=== PATIENT | female | born 1950 | race Caucasian/White ===

== ENCOUNTER 2017-02-02 17:52 | Emergency (ER) | payer OTHER ==
[~2017-02-02] VITALS: Wt 65.0 kg
[~2017-02-02 17:52] MED LIST: AMLO5TAB4 PO; ASPI81TA3 PO; METO50TA16 PO; NIT4 SL; RANI75TA13 PO
--- NOTE | 2017-02-02 18:34 | ERD ---
ER Documentation Chief Complaint Date/Time DATE: 02/02/17 TIME: 18:27 Chief Complaint RIGHT ANKLE PAIN/INJURY, HAPPENED LAST NIGHT HPI This pleasant 66-year-old female reports walking outside in her neighborhood yesterday and twisting her right ankle. Patient denies that she fell to the ground, she was able to catch herself with her utility trolley. Patient reports pain and swelling on the outside of her right ankle 8/10 on pain scale, described as aching, denies numbness, loss of consciousness, or injury any other body part., patient also reports foot pain along fifth phalanx on right foot. Patient past medical history includes cervical fusion 2010. Patient reports that she used rest, ice, warm compresses and Tylenol with little relief of pain. ROS All systems reviewed and are negative except as per history of present illness. Medications Home Meds Active Scripts Ibuprofen* (Motrin*) 400 Mg Tab, 400 MG PO Q6, #30 TAB Prov:NICKIE ONEIL 02/02/17 Nitroglycerin* (Nitrostat*) 0.4 Mg Tab.subl, 1 TAB SL Q5M Y for CHEST PAIN, #20 Prov:REAGAN TURNER MD 02/05/16 Aspirin (Aspirin) 81 Mg Chew, 81 MG PO DAILY for 30 Days, TAB Prov:ROMY TAPIA MD 07/14/15 Reported Medications Ranitidine Hcl* (Zantac*) 75 Mg Tablet, 75 MG PO BID, TAB 02/04/16 Metoprolol Succinate* (Toprol XL*) 50 Mg Tab.er.24h, 50 MG PO DAILY, #30 TAB 02/04/16 Amlodipine Besylate* (Norvasc*) 5 Mg Tablet, 5 MG PO DAILY, TAB 02/04/16 Allergies Allergies: Coded Allergies: Penicillins (Verified Allergy, Mild, ITCHING, 02/04/16) codeine (Verified Allergy, Mild, ITCHING, 02/04/16) erythromycin base (Verified Allergy, Mild, ABD PAIN, 02/04/16) morphine (Verified Allergy, Unknown, 02/04/16) PMhx/Soc History of Surgery: Yes (neck surgery.) Anesthesia Reaction: No Hx Neurological Disorder: Yes (TIA) Hx Respiratory Disorders: No Hx Cardiac Disorders: Yes (HTN) Hx Psychiatric Problems: No Hx Miscellaneous Medical Probl: No Hx Alcohol Use: No Hx Substance Use: No Hx Tobacco Use: No Smoking Status: Never smoker Physical Exam Vitals Vital Signs Date Time Temp Pulse Resp B/P Pulse Ox O2 Delivery O2 Flow Rate FiO2 02/02/17 17:57 97.7 73 17 154/76 99 Vitals stable, triage notes reviewed Physical Exam Const: No acute distress Head: Atraumatic Eyes: Normal Conjunctiva, PERRLA, EOMI ENT: Neck: Limited range of motion with rotation flexion and extension , this is baseline for patient. Resp: Chest rises and falls symmetrically, clear to auscultation bilaterally, no respiratory distress Cardio: Abd: Skin: No petechiae or rashes, no laceration, abrasion, or hematoma Back: Ext: Lower Extremity -right ankle: Skin: No laceration Compartments: Soft, palpable edema lateral ligaments Motor: Full active range of motion with rotation, flexion, extension, patient is able to ambulate without deficit but reports pain with weightbearing Sensation: Intact to light touch anterior, posterior, inferior, and lateral surfaces. Bones: Tender to palpation lateral malleolus, instep, and medial malleolus, fifth tarsal tenderness Joints: No effusion or laxity Pulses/Perfusion: 2+ DP, Capillary refill < 2 seconds Neur: Awake and alert Psych: Normal Mood and Affect Results 24 hrs Current Medications Medications (Trade) Dose Ordered Sig/Katie Route PRN Reason Start Time Stop Time Status Last Admin Dose Admin Ibuprofen (Motrin) 400 mg ONCE ONCE PO 02/02/17 19:00 02/02/17 19:01 DC 02/02/17 18:45 Procedures/MDM PROCEDURE: XR Right Ankle. CLINICAL INDICATION: Injury. TECHNIQUE: AP, oblique and lateral views of the right ankle were performed. COMPARISON: None. FINDINGS: There is a plantar spur off of the right os calcaneus. The ankle mortise and joint spaces are normal. The bony elements are intact. IMPRESSION: 1. No evidence of an acute fracture involving the right ankle. Physician Scooter Date Time Electronically viewed and signed by William Alberto Physician on 02/02/2017 19:41 ROCEDURE: Right XR Foot. CLINICAL INDICATION: Right foot. TECHNIQUE: AP lateral and oblique views of the right foot was obtained. The images were reviewed on a PACS workstation. COMPARISON: No. FINDINGS: The soft tissues and bony elements are normal. There is narrowing of the right first metatarsal phalangeal joint. There is soft tissue swelling medial to the joint. The other joint spaces are normal. IMPRESSION: 1. There is narrowing of the right first metatarsal phalangeal joint space with mild soft tissue swelling medial to the joint space. Physician Scooter Date Time Electronically viewed and signed by Physician Scooter on 02/02/2017 19:40 This pleasant 66-year-old female presents to the emergency department for evaluation of right ankle pain after twisting her ankle while ambulating in her neighborhood. Patient did not fall, did not lose consciousness, and has been mobile since injury. Patient has been treating symptoms with ice and warm compresses and Tylenol with little relief of symptoms. Patient has tenderness and swelling noted at lateral malleolus, tarsus, and medial malleolus, fifth metatarsal tenderness. There is suspicion for an ankle fracture, fifth metatarsal fracture, x-rays obtained, right ankle x-ray impression no evidence of acute ankle fracture. There is plantar spur of the right OS calcaneus. Right foot x-ray impression there is narrowing of the right first metatarsal pharyngeal joint space with mild soft tissue swelling medial to the joint space. All other joint spaces documented as normal. Patient receives a [place] and emergency department for pain 8/10 on pain scale. Patient will be discharged home with Vitor wrap, short dose of motrin and rice therapy. Return to emergency department for worsening of symptoms, inability to ambulate, I feel the patient is stable for discharge at this time with outpatient management and follow-up with primary care physician. I have discussed results , examination findings, the treatment plan with the patient and family present prior to discharge. Indications for emergent reevaluation, side effects of medication were also discussed. All questions were answered. Patient verbalizes understanding and agrees with plan of care. Departure Diagnosis: Primary Impression: Ankle injury Encounter type: initial encounter Laterality: right Qualified Code: S99.911A - Ankle injury, right, initial encounter Condition: Good Patient Instructions: Treating Ankle Sprains Additional Instructions: Thank you for for coming to [facility] for your care today. Please ask your nurse or provider if you have questions about your care today and do not leave until all your questions have been answered. Please use any medications given as directed and follow-up with your doctor (or the doctor you were referred to) in the next 2-3 days. If you do not have a primary care doctor [place] [facility] [place] You may also use motrin and tylenol as needed for fever and/or pain unless instructed otherwise by your provider or nurse. Indications for more urgent follow-up have been discussed, but you may return to the Emergency Department at ANY time for any worrisome or worsening symptoms. If you have abdominal pain, please know that no test or exam you received is perfect and you should follow up within 8 hours for continued pain. If you had any imaging studies today, such as an X-Ray or CT Scan, these studies will be reviewed later by a radiologist. You will be called if there are important findings that were not identified today, so make sure the contact information you provided at registration is correct. If you received any narcotic pain control medicine today, such as Vicodin, Morphine or Dilaudid, your coordination and judgment may be affected for a number of hours. Please do not drive or operate heavy machinery, and you may want someone to assist you at home. If you were given a prescription for narcotic medication, be aware that it is very addictive- use sparingly and only if necessary. NICKIE ONEIL February 02, 2017 18:34
[2017-02-02] MEDS ORDERED: IBUPROFEN 200 MG TAB PO ONE (19:00)
--- NOTE | 2017-02-02 19:40 | RADRPT ---
PROCEDURE: Right XR Foot. CLINICAL INDICATION: Right foot. TECHNIQUE: AP lateral and oblique views of the right foot was obtained. The images were reviewed on a PACS workstation. COMPARISON: No. FINDINGS: The soft tissues and bony elements are normal. There is narrowing of the right first metatarsal phal angeal joint. There is soft tissue swelling medial to the joint. The other joint spaces are normal . IMPRESSION: 1. There is narrowing of the right first metatarsal phalangeal joint space with mild soft tissue sw elling medial to the joint space. RPTAT:AAJJ Physician Scooter Date Time Electronically viewed and signed by Physician Scooter on 02/02/2017 19:40 DONNIE/
--- NOTE | 2017-02-02 19:41 | RADRPT ---
PROCEDURE: XR Right Ankle. CLINICAL INDICATION: Injury. TECHNIQUE: AP, oblique and lateral views of the right ankle were performed. COMPARISON: None. FINDINGS: There is a plantar spur off of the right os calcaneus. The ankle mortise and joint spaces are james l. The bony elements are intact. IMPRESSION: 1. No evidence of an acute fracture involving the right ankle. RPTAT:AAJJ Physician Scooter Date Time Electronically viewed and signed by William Alberto Physician on 02/02/2017 19:41 DONNIE/
[2017-02-02] MEDS ORDERED: IBUP400T22 PO (20:37)
[2017-02-02 21:21] VITALS: BP 138/81; PULSE 58; RESP 18
== END 2017-02-02 21:22 | disposition home or self-care (01) ==
LOC: FTE 17:52
DX: S99.911A Unspecified injury of right ankle, initial encounter (principal); I10 Essential (primary) hypertension; X50.1XXA Overexertion from prolonged static or awkward postures, initial encounter; Y92.89 Other specified places as the place of occurrence of the external cause; Z79.82 Long term (current) use of aspirin
CPT/HCPCS: 73610; 73630; Z7502; Z7610